=== PATIENT | male | born 1960 | race Caucasian/White ===

== ENCOUNTER 2019-10-08 12:18 | Day surgery (SDC) | payer BC ==
[~2019-10-08 12:18] MED LIST: Acetaminophen/oxyCODONE 325-5 MG Tab PO PRN; Bupivacaine 0.5% 30 ML SDV ONE; Dexamethasone 4 MG/ML 5 ML MDV ONE; Glycopyrrolate 0.2 MG/ML SDV ONE; Ketorolac 30 MG/ML SDV ONE; Lidocaine 2% 5 ML SDV ONE; Midazolam 1 MG/ML 2 ML SDV ONE; Ondansetron 4 MG/2 ML SDV ONE; Phenylephrine 1% 10 MG/ML SDV ONE; Propofol 200 MG/20 ML SDV ONE; Sugammadex Sodium 200 MG/2 ML VIAL ONE; ceFAZolin 2 GM in Premix Bag 1 BAG IV SCH; fentaNYL 100 MCG/2 ML SDV ONE
[2019-10-08] MEDS: Lactated Ringers 1,000 ML IV SCH ×2 (12:35→21:33)
--- NOTE | 2019-10-08 12:48 | PCM.PREANE ---
Preanesthetic Assessment - Anesthesia/Transfusion/Family Hx Anesthesia History: Prior Anesthesia Without Reaction Family History of Anesthesia Reaction: No Transfusion History: No Prior Transfusion(s) - Review of Systems General: No Symptoms Pulmonary: No Symptoms Cardiovascular: No Symptoms Gastrointestinal: No Symptoms Neurological: No Symptoms Other: Reports: None - Physical Assessment Height: 5 ft 8 in Weight: 97.069 kg ASA Class: 2 Mental Status: Alert & Oriented x3 Airway Class: Mallampati = 1 Dentition: Reports: Bridge (upper and lower central) ROM/Head Extension: Full Lungs: Clear to Auscultation, Normal Respiratory Effort Cardiovascular: Regular Rate, Regular Rhythm - Allergies Allergies/Adverse Reactions: Allergies Allergy/AdvReac Type Severity Reaction Status Date / Time lisinopril Allergy Cannot Verified 10/05/19 16:37 Remember - Blood Blood Available: No - Anesthesia Plan Pre-Op Medication Ordered: None - Acknowledgements Anesthesia Type Planned: General Anesthesia Pt an Appropriate Candidate for the Planned Anesthesia: Yes Alternatives and Risks of Anesthesia Discussed w Pt/Guardian: Yes Pt/Guardian Understands and Agrees with Anesthesia Plan: Yes Additional Comments: pmh: polycythemia with hb/hct of 18/55 last week. since then has had 3 units of blood taken off. 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 PLAN: get PreAnesthesia Questionnaire HEENT History: Reports: Other (See Below) Other HEENT History: wears glasses Cardiovascular History: Reports: Hypertension Respiratory History: Reports: Sleep Apnea, Other (See Below) Other Respiratory History: SOB at times, denies asthma or COPD, has prescribed inhaler which he states he seldom uses, uses CPAP Gastrointestinal History: Reports: None Genitourinary History: Reports: None Other Musculoskeletal History: left shoulder pain Neurological History: Reports: None Psychiatric History: Reports: None Endocrine/Metabolic History: Reports: Obesity/BMI 30+ Hematologic History: Reports: Other (See Below) Other Hematologic History: gives blood every "couple months" due to elevated HGB Immunologic History: Reports: None Oncologic (Cancer) History: Reports: None Dermatologic History: Reports: Other (See Below) Other Dermatologic History: neurodermatofibromas - Past Surgical History Head Surgeries/Procedures: Reports: None HEENT Surgical History: Reports: Detached Retina Cardiovascular Surgical History: Reports: Other (See Below) Other Cardiovascular Surgeries/Procedures: hx angiogram Respiratory Surgical History: Reports: None GI Surgical History: Reports: None Male Surgical History: Reports: None Neurological Surgical History: Reports: None Musculoskeletal Surgical History: Reports: None Oncologic Surgical History: Reports: None Dermatological Surgical History: Reports: None - SUBSTANCE USE Smoking Status *Q: Former Smoker Tobacco Use Within Last Twelve Months: No Days Per Week of Alcohol Use: 7 Number of Drinks Per Day: 2 Total Drinks Per Week: 14 Recreational Drug Use History: No - HOME MEDS Home Medications: Home Meds Albuterol Sulfate [Proair Hfa] 2 puff INH ASDIRECTED PRN 10/05/19 [History] Meloxicam 7.5 mg PO DAILY 10/05/19 [History] Metoprolol Succinate 100 mg PO DAILY 10/05/19 [History] Multivitamin [Multivitamins] 1 tab PO DAILY 10/05/19 [History] amLODIPine Besylate [Amlodipine Besylate] 5 mg PO DAILY 10/05/19 [History] hydroCHLOROthiazide [Hydrochlorothiazide] 25 mg PO DAILY 10/05/19 [History] oxyCODONE HCl/Acetaminophen [Percocet 5-325 mg Tablet] 1 each PO QID PRN #28 tablet 10/08/19 [Rx] - CURRENT (IN HOUSE) MEDS Current Meds: Current Medications Cefazolin Sodium/Dextrose 2 gm (/ Premix) 50 mls @ 100 mls/hr IV ONCALL JSOE Lactated Ringer's (Ringers, Lactated) 1,000 mls @ 100 mls/hr IV ASDIRECTED JOSE Oxycodone/Acetaminophen (Percocet 325-5 Mg) 1 tab PO Q6H PRN PRN Reason: Pain Discontinued Medications Bupivacaine HCl (Marcaine 0.5%) Confirm Administered Dose 30 ml .ROUTE .STK-MED ONE Stop: 10/08/19 07:11 Dexamethasone (Dexamethasone) Confirm Administered Dose 20 mg .ROUTE .STK-MED ONE Stop: 10/08/19 07:14 Fentanyl (Sublimaze) Confirm Administered Dose 100 mcg .ROUTE .STK-MED ONE Stop: 10/08/19 07:18 Glycopyrrolate (Robinul) Confirm Administered Dose 0.2 mg .ROUTE .STK-MED ONE Stop: 10/08/19 07:14 Ketorolac Tromethamine (Toradol) Confirm Administered Dose 30 mg .ROUTE .STK- MED ONE Stop: 10/08/19 07:14 Lidocaine (Xylocaine-Mpf 2%) Confirm Administered Dose 5 ml .ROUTE .STK-MED ONE Stop: 10/08/19 07:14 Midazolam HCl (Versed 1 Mg/Ml) Confirm Administered Dose 2 mg .ROUTE .STGeriJoy-MED ONE Stop: 10/08/19 07:18 Ondansetron HCl (Zofran) Confirm Administered Dose 4 mg .ROUTE .STGeriJoy-MED ONE Stop: 10/08/19 07:14 Phenylephrine HCl (Ted-Synephrine) Confirm Administered Dose 10 mg .ROUTE .STGeriJoy- MED ONE Stop: 10/08/19 07:28 Propofol (Diprivan 20 Ml) Confirm Administered Dose 200 mg .ROUTE .STGeriJoy-MED ONE Stop: 10/08/19 07:19 Sugammadex Sodium (Bridion) Confirm Administered Dose 200 mg .ROUTE .STGeriJoy-MED ONE Stop: 10/08/19 07:11
--- NOTE | 2019-10-08 14:50 | PCM.OPNOTE ---
- General Post-Op/Procedure Note Date of Surgery/Procedure: 10/08/19 Operative Procedure(s): left shoulder arthroscopy. subacromial decompression. open rotator cuff repair Pre Op Diagnosis: left shoulder impingement. left rotator cuff tear Post-Op Diagnosis: Same Anesthesia Technique: General ET Tube Primary Surgeon: Fredy Otto Anesthesia Provider: Leon De Santiago EBL in mLs: 25 Complications: None Condition: Good
--- NOTE | 2019-10-08 15:24 | PCM.POSTAN ---
POST ANESTHESIA ASSESSMENT - MENTAL STATUS Mental Status: Alert - VITAL SIGNS Vital Signs: Last Vital Signs Temp 36.4 C 10/08/19 14:39 Pulse 91 10/08/19 15:15 Resp 20 10/08/19 15:15 BP 113/79 10/08/19 15:15 Pulse Ox 97 10/08/19 15:15 - RESPIRATORY Respiratory Status: Respiratory Rate WNL - CARDIOVASCULAR CV Status: Pulse Rate WNL - GASTROINTESTINAL GI Status: No Symptoms - POST OP HYDRATION Hydration Status: Adequate & Stable
[2019-10-08] MEDS ORDERED: Desflurane 240 ML Bottle ONE (15:26)
--- NOTE | 2019-10-08 15:59 | OR ---
SURGEON: Fredy Otto DATE OF PROCEDURE: 10/08/2019 PREOPERATIVE DIAGNOSES: Left shoulder impingement, left rotator cuff tear. POSTOPERATIVE DIAGNOSES: Left shoulder impingement, left rotator cuff tear. PROCEDURES: Left shoulder arthroscopy, subacromial decompression, and open rotator cuff repair. PRIMARY SURGEON: Fredy Otto DO. ANESTHESIA: General endotracheal intubation. FLUID: Lactated Ringer's solution. ESTIMATED BLOOD LOSS: 25 mL. COMPLICATIONS: None. SPECIMEN: None. DISCHARGE DISPOSITION: Stable to PACU. HISTORY AND INDICATION FOR THE PROCEDURE: The patient was seen preoperatively in the clinic. Preoperative imaging confirmed the above-mentioned diagnoses. Risks and goals of the procedure were explained to the patient. Informed consent was obtained. DETAILS OF PROCEDURE: The patient was seen preoperatively by myself and the Anesthesia staff in the preoperative holding area where the operative site was marked. He was brought to the operative suite by the Anesthesia staff where general anesthesia was administered. All extremities were found to be well padded. He was placed in the beach chair position. The neck was slightly flexed. The left upper extremity was then prepped and draped in a sterile manner. Time-out was called identifying the correct patient, the correct procedure, the correct site, and that antibiotics had been given within appropriate period of time. A posterior portal was then made. The joint was entered. 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 There was some fraying of the biceps, but otherwise looked to be in good condition. The glenoid labrum was in good condition. The rotator cuff tear was evident anteriorly. No other abnormalities were seen within the joint and no debridement was performed inside the joint. We then removed our instruments and then entered with a trocar, then the camera into the subacromial space. Again, the rotator cuff tear was visualized anteriorly. A spinal needle was used for localization of the lateral portal and then this was made using a #11 blade and then entered with a trocar and then with a shaver. I then performed a subacromial decompression with bursectomy using the shaver and a bur and ablation unit. This was a type 2 acromion. After that had been accomplished, I then removed all of our instruments from the subacromial space. I re-prepped using ChloraPrep and then started my open rotator cuff repair. I made a saber incision lateral to the anterior edge of the acromion and extending distally about 5 cm. Bleeding was controlled with Bovie electrocautery. I split the deltoid at the junction of the anterior and median raphe. I then used Gelpi's for retraction as well as an [place]. I removed significant amount of bursa. The rotator cuff was easily visualized as two- thirds of it was still intact in its posterior portion. The anterior portion had been pulled off and actually I would describe it as quite floppy and stretched. I then applied an Iconix anchor and removed one of the strands. We then used the Scorpion to go through the cuff in a mattress fashion, more on its anterior lateral edge of the footprint. I then tied these down and then used a knotless anchor to tie down the remaining strands in a carmen-cross manner. This provided good fixation to the former footprint. The patient had good range of motion. I then copiously irrigated with Betadine infused irrigation. We closed the deltoid in a watertight manner using 0 Stratafix, subcutaneous closure with 0 Stratafix, followed by skin magi at the several incisions of the portals followed by Betadine-soaked Adaptic, fluffs, ABD, and Medipore tape. The patient was then allowed to awaken from general anesthesia and taken to the PACU in stable condition. [id number] / MODL /[id number]
[2019-10-08] MEDS: amLODIPine 5 MG Tab PO SCH (18:01)
[2019-10-08] MEDS: Metoprolol Succinate 100 MG Tab.ER PO SCH (18:02)
[2019-10-08] MEDS ORDERED: FLU Vacc QS2019-20(6MOS+)/PF 60 MCG/0.5 ML SYRINGE IM ONE (19:30)
[2019-10-08] MEDS: ceFAZolin 2 GM in Premix Bag 1 BAG IV SCH (21:33)
[2019-10-09] MEDS: ceFAZolin 2 GM in Premix Bag 1 BAG IV SCH (05:42)
[2019-10-09] MEDS: Metoprolol Succinate 100 MG Tab.ER PO SCH (08:39)
[2019-10-09] MEDS: amLODIPine 5 MG Tab PO SCH (08:39)
--- NOTE | 2019-10-09 08:55 | PCM48HPAN ---
Post Anesthesia Note - EVALUATION WITHIN 48HRS OF ANESTHETIC Vital Signs in Normal Range: Yes Patient Participated in Evaluation: Yes Respiratory Function Stable: Yes Airway Patent: Yes Cardiovascular Function Stable: Yes Hydration Status Stable: Yes Pain Control Satisfactory: Yes Nausea and Vomiting Control Satisfactory: Yes Mental Status Recovered: Yes Vital Signs: Last Vital Signs Temp 36.6 C 10/09/19 07:10 Pulse 85 10/09/19 08:39 Resp 16 10/09/19 07:10 BP 121/82 10/09/19 08:39 Pulse Ox 93 L 10/09/19 07:10
--- NOTE | 2019-10-09 10:56 | PCM.DCSUM1 ---
Discharge Summary - Hospital Course HPI Initial Comments: s/p left rcr kept over night d/t low O2 sat, uneventful Diagnosis: Stroke: No - Discharge Data Discharge Date: 10/09/19 Discharge Disposition: Home, Self-Care 01 Condition: Good - Referral to Home Health Primary Care Physician: Aide Feliciano NP - Discharge Diagnosis/Problem(s) (1) Left rotator cuff tear SNOMED Code(s): 1122896 ICD Code: M75.102 - UNSP ROTATR-CUFF TEAR/RUPTR OF LEFT SHOULDER, NOT TRAUMA Status: Acute Current Visit: Yes Qualifiers: Rotator cuff tear extent: complete Rotator cuff tear trauma status: traumatic Encounter type: initial encounter Qualified Code(s): S46.012A - Strain of muscle(s) and tendon(s) of the rotator cuff of left shoulder, initial encounter - Patient Summary/Data Operative Procedure(s) Performed: left shoulder arthroscopy. subacromial decompression. open rotator cuff repair - Patient Instructions Diet: Usual Diet as Tolerated Activity: Apply Ice, Non Weight Bearing, No Strenuous Activities, Rest and Relax Today Activity, Other: No lifting, pushing or pulling with LEFT arm. Driving, Other: No driving while taking narcotic medication Showering/Bathing: No Tub Bathing/Swimming, May Shower in 3 Days Wound/Incision Care: Keep Operative Site/Wound Site Clean and Dry, Change Dressing Daily Notify Provider of: Fever, Increased Pain, Swelling and Redness, Drainage Other/Special Instructions: Wear sling whenever ambulating. Keep left arm in dependent position. No reaching forward. No weight bearing. Pendulum activity only. - Discharge Plan *PRESCRIPTION DRUG MONITORING PROGRAM REVIEWED*: Yes *COPY OF PRESCRIPTION DRUG MONITORING REPORT IN PATIENT YAMILET: No Prescriptions/Med Rec: Acetaminophen/oxyCODONE [Percocet 325-5 MG] 1 tab PO Q6H PRN #56 tablet PRN Reason: Pain oxyCODONE HCl/Acetaminophen [Percocet 5-325 mg Tablet] 1 each PO QID PRN #28 tablet PRN Reason: Pain Home Medications: Home Meds Meloxicam 7.5 mg PO DAILY 10/05/19 [History] Metoprolol Succinate 100 mg PO DAILY 10/05/19 [History] Multivitamin [Multivitamins] 1 tab PO DAILY 10/05/19 [History] amLODIPine Besylate [Amlodipine Besylate] 5 mg PO DAILY 10/05/19 [History] hydroCHLOROthiazide [Hydrochlorothiazide] 25 mg PO DAILY 10/05/19 [History] Acetaminophen/oxyCODONE [Percocet 325-5 MG] 1 tab PO Q6H PRN #56 tablet [Rx] oxyCODONE HCl/Acetaminophen [Percocet 5-325 mg Tablet] 1 each PO QID PRN #28 tablet 10/08/19 [Rx] Oxygen Therapy Mode: Room Air Patient Handouts: Acetaminophen; Oxycodone tablets Referrals: Deana Riley NP [Nurse Practitioner] - 10/22/19 10:30 am - Discharge Summary/Plan Comment DC Time >30 min.: No - Patient Data Vitals - Most Recent: Last Vital Signs Temp 36.6 C 10/09/19 07:10 Pulse 85 10/09/19 08:39 Resp 16 10/09/19 07:10 BP 121/82 10/09/19 08:39 Pulse Ox 93 L 10/09/19 07:10 Weight - Most Recent: 97.069 kg I&O - Last 24 hours: Intake & Output 10/08/19 10/09/19 10/09/19 22:59 06:59 14:59 Intake Total 950 2248 Output Total 1675 Balance 950 573 Med Orders - Current: Current Medications Amlodipine Besylate (Norvasc) 5 mg PO DAILY [facility] Last Admin: 10/09/19 08:39 Dose: 5 mg Lactated Ringer's (Ringers, Lactated) 1,000 mls @ 100 mls/hr IV ASDIRECTED [facility] Last Admin: 10/08/19 21:33 Dose: 100 mls/hr Metoprolol Succinate (Toprol Xl) 100 mg PO DAILY [facility] Last Admin: 10/09/19 08:39 Dose: 100 mg Oxycodone/Acetaminophen (Percocet 325-5 Mg) 1 tab PO Q6H PRN PRN Reason: Pain Discontinued Medications Bupivacaine HCl (Marcaine 0.5%) Confirm Administered Dose 30 ml .ROUTE .STK-MED ONE Stop: 10/08/19 07:11 Desflurane (Suprane) Confirm Administered Dose 480 ml .ROUTE .STK-MED ONE Stop: 10/08/19 15:27 Dexamethasone (Dexamethasone) Confirm Administered Dose 20 mg .ROUTE .STK-MED ONE Stop: 10/08/19 07:14 Fentanyl (Sublimaze) Confirm Administered Dose 100 mcg .ROUTE .STK-MED ONE Stop: 10/08/19 07:18 Glycopyrrolate (Robinul) Confirm Administered Dose 0.2 mg .ROUTE .STK-MED ONE Stop: 10/08/19 07:14 Cefazolin Sodium/Dextrose 2 gm (/ Premix) 50 mls @ 100 mls/hr IV ONCALL JOSE Cefazolin Sodium/Dextrose 2 gm (/ Premix) 50 mls @ 100 mls/hr IV Q8H JOSE Stop: 10/09/19 06:29 Last Admin: 10/09/19 05:42 Dose: 100 mls/hr Influenza Virus Vaccine (Fluzone Quad Syringe) 60 mcg IM .ONCE ONE Stop: 10/08/19 19:31 Ketorolac Tromethamine (Toradol) Confirm Administered Dose 30 mg .ROUTE .STK- MED ONE Stop: 10/08/19 07:14 Lidocaine (Xylocaine-Mpf 2%) Confirm Administered Dose 5 ml .ROUTE .STK-MED ONE Stop: 10/08/19 07:14 Midazolam HCl (Versed 1 Mg/Ml) Confirm Administered Dose 2 mg .ROUTE .STK-MED ONE Stop: 10/08/19 07:18 Ondansetron HCl (Zofran) Confirm Administered Dose 4 mg .ROUTE .STK-MED ONE Stop: 10/08/19 07:14 Phenylephrine HCl (Ted-Synephrine) Confirm Administered Dose 10 mg .ROUTE .STK- MED ONE Stop: 10/08/19 07:28 Propofol (Diprivan 20 Ml) Confirm Administered Dose 200 mg .ROUTE .STK-MED ONE Stop: 10/08/19 07:19 Sugammadex Sodium (Bridion) Confirm Administered Dose 200 mg .ROUTE .STK-MED ONE Stop: 10/08/19 07:11
== END 2019-10-09 11:50 | disposition home or self-care (01) ==
LOC: MW.SDS 12:18 → MW.MS 17:00 → MW.SDS 10-09 11:50
PROVIDERS: ATTEND Orthopaedic Surgery
DX: M75.102 Unspecified rotator cuff tear or rupture of left shoulder, not specified as traumatic (principal); M75.42 Impingement syndrome of left shoulder; I10 Essential (primary) hypertension; G47.30 Sleep apnea, unspecified; E66.9 Obesity, unspecified; Z68.32 Body mass index [BMI] 32.0-32.9, adult; Z87.891 Personal history of nicotine dependence; Z88.8 Allergy status to other drugs, medicaments and biological substances; Z79.1 Long term (current) use of non-steroidal anti-inflammatories (NSAID); Z79.899 Other long term (current) drug therapy; Z99.89 Dependence on other enabling machines and devices; Z23 Encounter for immunization
CPT/HCPCS: 23412; 90471; 90686; A9270; J0690; J1100; J1885; J2001; J2250; J2370; J2405; J2704; J3010; J3490; J7120; G0008